=== PATIENT | female | born 1940 | race Caucasian/White ===

== ENCOUNTER → 2016-09-03 | Outpatient (CLI) | payer OTHER ==
[~2016-09-03] MED LIST: ALEN70TA4 PO; CALCTAB65 PO; CHOL100010 PO; LSN/10125 PO
[2016-09-03 10:59] LABS: BASO % 0.8 %; BASO ABS # 0.04 K/uL (0-0.2); COMPLETE YES; EOS % 1.6 %; HEMATOCRIT 40.8 % (37-47); LYMPH % 32.9 %; LYMPH ABS # 1.67 K/uL (1.2-3.4); MEAN CELL VOLUME 94.4 fL (80-100); MEAN CORPUSCULAR HEMOGLOBIN 31.7 pg (25-34); MEAN CORPUSCULAR HGB CONC 33.6 g/dl (32-36); MEAN PLATELET VOLUME 11.9 fL (7.4-10.4); MONO % 10.1 %; NEUT % 54.6 %; PLATELET COUNT 241 K/uL (130-400); RED BLOOD COUNT 4.32 M/uL (4.2-5.4); WHITE BLOOD COUNT 5.07 K/uL (4.8-10.8)
[2016-09-03 11:20] LABS: BLOOD UREA NITROGEN 17 mg/dl (7-18); BUN/CREATININE RATIO 18.6 (10-20); CARBON DIOXIDE 25 mmol/L (21-32); CHLORIDE 105 mmol/L (98-107); CHOLESTEROL 209 mg/dl (0-200); GLUCOSE 121 mg/dl (70-99); POTASSIUM 3.6 mmol/L (3.5-5.1); SODIUM 139 mmol/L (136-145); TRIGLYCERIDES 93 mg/dl (0-150); VERY LOW DENSITY LIPOPROT CALC 19 mg/dl
[2016-09-03 11:24] LABS: CALCIUM 9.4 mg/dl (8.5-10.1)
[2016-09-03 11:26] LABS: CHOLESTEROL/HDL RATIO 2.5; HDL CHOLESTEROL 82 mg/dl; LDL CHOLESTEROL CALCULATED 108 mg/dl
== END | disposition home or self-care (01) ==
LOC: C.LABBC 08:16
PROVIDERS: ATTEND Internal Medicine Geriatric Medicine
DX: I10 Essential (primary) hypertension (principal); M19.90 Unspecified osteoarthritis, unspecified site; E55.9 Vitamin D deficiency, unspecified; E78.5 Hyperlipidemia, unspecified

== ENCOUNTER → 2016-10-15 | Outpatient (CLI) | payer OTHER ==
--- NOTE | 2016-10-15 09:52 | DIAGNOSTIC IMAGING REPORT ---
LEFT KNEE 1 OR 2 VIEWS ROUTINE CLINICAL HISTORY: Left knee pain. No recent trauma. COMPARISON: None FINDINGS: There is a small left knee joint effusion. There is moderate lateral and patellofemoral component joint space narrowing with osteophytosis. There is no acute fracture. IMPRESSION: 1. No acute fracture. 2. Moderate osteoarthritis of the patellofemoral and lateral compartments of the left knee. 3. Small left knee joint effusion. Electronically signed by: Juan Pablo Benítez M.D. 10/15/2016 9:51 AM Dictated Date/Time: 10/15/2016 9:50 AM
--- NOTE | 2016-10-15 10:05 | DIAGNOSTIC IMAGING REPORT ---
LEFT ANKLE MIN 3 VIEWS ROUTINE CLINICAL HISTORY: Left ankle pain. COMPARISON: None FINDINGS: Alignment of left ankle is anatomic. There is no fracture or suspicious lesion. Talar dome is intact. There is minimal plantar calcaneal spurring. There is mild arthritis with the left midfoot. IMPRESSION: No significant abnormality of the left ankle. Electronically signed by: Juan Pablo Benítez M.D. 10/15/2016 10:03 AM Dictated Date/Time: 10/15/2016 10:03 AM
--- NOTE | 2016-10-15 10:10 | DIAGNOSTIC IMAGING REPORT ---
Venous Doppler left leg LEFT VENOUS DOPP LOWER EXT UNILAT CLINICAL HISTORY: Left leg pain pain. Edema. TECHNIQUE: Venous Doppler COMPARISON STUDY: None FINDINGS: Normal study IMPRESSION: Normal study Electronically signed by: Mark Rapp M.D. 10/15/2016 10:09 AM Dictated Date/Time: 10/15/2016 10:08 AM
== END | disposition home or self-care (01) ==
LOC: C.ULTRBC 09:19
PROVIDERS: ATTEND Physician Assistant
DX: M79.605 Pain in left leg (principal); M25.572 Pain in left ankle and joints of left foot; M25.569 Pain in unspecified knee; M17.12 Unilateral primary osteoarthritis, left knee; M25.462 Effusion, left knee

== ENCOUNTER → 2017-05-11 | Outpatient (CLI) | payer OTHER ==
[~2017-05-11] MED LIST changes: +ACET-1256 PO; +ACET-24 PO; +ASPI-320 PO; +CHOL2000 PO; +FRRG PO; +IBUP-103 PO; +ULT50X PO
[2017-05-11 13:49] LABS: HEMOGLOBIN A1C 5.3 % (4.5-5.6)
[2017-05-11 14:53] LABS: BLOOD UREA NITROGEN 19 mg/dl (7-18); CALCIUM 9.3 mg/dl (8.5-10.1); CARBON DIOXIDE 27 mmol/L (21-32); GLUCOSE 89 mg/dl (70-99); POTASSIUM 4.1 mmol/L (3.5-5.1); SODIUM 136 mmol/L (136-145)
[2017-05-11 15:01] LABS: CHOLESTEROL 220 mg/dl (0-200); LDL CHOLESTEROL CALCULATED 108 mg/dl
== END | disposition home or self-care (01) ==
LOC: C.LABBC 09:52
PROVIDERS: ATTEND Internal Medicine Geriatric Medicine
DX: I10 Essential (primary) hypertension (principal); R73.9 Hyperglycemia, unspecified; E78.5 Hyperlipidemia, unspecified

== ENCOUNTER → 2017-05-25 | Outpatient (CLI) | payer OTHER ==
[~2017-05-25] MED LIST changes: -ACET-1256 PO; -ACET-24 PO; -ASPI-320 PO; -CHOL2000 PO; -FRRG PO; -IBUP-103 PO; -ULT50X PO
--- NOTE | 2017-05-25 15:10 | MAMMOGRAPHY REPORT ---
BILATERAL DIGITAL SCREENING MAMMOGRAM TOMOSYNTHESIS WITH CAD: 05/25/2017 CLINICAL HISTORY: Routine screening. Patient has no complaints. TECHNIQUE: Breast tomosynthesis in addition to standard 2D mammography was performed. Current study was also evaluated with a Computer Aided Detection (CAD) system. COMPARISON: Comparison is made to exams dated: 04/06/2016 mammogram, 04/01/2015 mammogram, 02/06/2014 mammogram, 10/26/2012 mammogram, 10/25/2011 mammogram, and 10/22/2010 mammogram - [facility]. BREAST COMPOSITION: There are scattered areas of fibroglandular density in both breasts. FINDINGS: No suspicious masses, calcifications, or areas of architectural distortion are noted in ei ther breast. There has been no significant interval change compared to prior exams. Small bilateral circumscribed benign-appearing masses are again noted bilaterally; the dominant mass measures 11 mm i n the right upper outer breast, which is stable dating back to at least the 2007 exam. A biopsy cindy er clip is again noted within the right upper outer quadrant. Bilateral benign-appearing calcificati ons are not significantly changed. IMPRESSION: ACR BI-RADS CATEGORY 2: BENIGN There is no mammographic evidence of malignancy. A 1 year screening mammogram is recommended. The pa tient will receive written notification of the results. Approximately 10% of breast cancers are not detected with mammography. A negative mammographic report should not delay biopsy if a clinically suggestive mass is present. Corin Bullard M.D. /:05/25/2017 08:49:19 Insurance Licensing Supervisor: Laya JOHNSON(Luna)(M), [facility] letter sent: Normal 1/2 BI-RADS Code: ACR BI-RADS Category 2: Benign
== END | disposition home or self-care (01) ==
LOC: C.MAMM 08:31
PROVIDERS: ATTEND Internal Medicine Geriatric Medicine
DX: Z12.31 Encounter for screening mammogram for malignant neoplasm of breast (principal)

== ENCOUNTER 2017-08-16 08:58 | Inpatient (IN) | payer OTHER ==
[2017-07-18 08:35] VITALS: BMI 32.0
--- NOTE | 2017-07-18 09:03 | PAT Medication Instructions ---
Service Date Jul 18, 2017. Current Home Medication List Acetaminophen (Tylenol), 500 MG PO PRN Alendronate Sodium (Fosamax), 70 MG PO WK Calcium Carbonate-Vitamin D (Calcium 500 + D), 1 TAB PO QAM Cholecalciferol (Vitamin D3), 1 CAP PO QAM Hctz/Lisinopril (Lisinopril/Hctz 10/12.5 Mg), 1 TAB PO QAM Ibuprofen Tab (Advil), 200 MG PO PRN Medication Instructions For Your Scheduled Surgery -Continue as directed: Alendronate Sodium (Fosamax), 70 MG PO WK -Contact your surgeon for instructions for: Ibuprofen Tab (Advil), 200 MG PO PRN - Hold the following medications the morning of surgery: Calcium Carbonate-Vitamin D (Calcium 500 + D), 1 TAB PO QAM Cholecalciferol (Vitamin D3), 1 CAP PO QAM Hctz/Lisinopril (Lisinopril/Hctz 10/12.5 Mg), 1 TAB PO QAM - Take the following medications the morning of surgery with a sip of water: Acetaminophen (Tylenol), 500 MG PO PRN (if needed, can be taken up to four hours before surgery) - Take the following medications as scheduled the night before surgery: Acetaminophen (Tylenol), 500 MG PO PRN (if needed) If you have any questions please call us at [phone] or [phone] or [phone]
--- NOTE | 2017-07-18 09:41 | DIAGNOSTIC IMAGING REPORT ---
TWO VIEW CHEST CLINICAL HISTORY: Preoperative examination. FINDINGS: PA and lateral chest radiographs are obtained. No prior studies are available for comparison at the time of dictation. The heart is top normal for projection. There is atherosclerotic calcification of the thoracic aorta. There is mild elevation of right hemidiaphragm. The lungs and pleural spaces are clear. There is no pneumothorax. The skeletal structures are osteopenic. The bony thorax appears intact. IMPRESSION: No active disease in the chest. Electronically signed by: Van Clark M.D. 07/18/2017 9:39 AM Dictated Date/Time: 07/18/2017 9:39 AM
[2017-07-18 10:14] LABS: BASO % 0.5 %; BASO ABS # 0.02 K/uL (0-0.2); EOS % 1.8 %; EOS ABS # 0.08 K/uL (0-0.5); HEMATOCRIT 40.4 % (37-47); HEMOGLOBIN 13.8 g/dL (12.0-16.0); LYMPH % 30.3 %; LYMPH ABS # 1.34 K/uL (1.2-3.4); MEAN CELL VOLUME 93.1 fL (80-100); MEAN CORPUSCULAR HEMOGLOBIN 31.8 pg (25-34); MEAN CORPUSCULAR HGB CONC 34.2 g/dl (32-36); MEAN PLATELET VOLUME 11.3 fL (7.4-10.4); MONO % 13.3 %; MONO ABS # 0.59 K/uL (0.11-0.59); NEUT % 54.1 %; NEUT ABS # 2.39 K/uL (1.4-6.5); PLATELET COUNT 229 K/uL (130-400); RED CELL DISTRIBUTION WIDTH CV 12.7 % (11.5-14.5); RED CELL DISTRIBUTION WIDTH SD 43.1 fL (36.4-46.3); WHITE BLOOD COUNT 4.42 K/uL (4.8-10.8)
[2017-07-18 10:33] LABS: PTT PATIENT 27.5 SECONDS (21.0-31.0)
[2017-07-18 10:59] LABS: CALCIUM 9.7 mg/dl (8.5-10.1); CREATININE 0.9 mg/dl (0.60-1.20); POTASSIUM 4.4 mmol/L (3.5-5.1)
--- NOTE | 2017-08-10 14:02 | HISTORY & PHYSICAL EXAMINATION ---
DATE OF ADMISSION: 08/16/2017 CHIEF COMPLAINT: Bilateral knee pain, discomfort and instability, left side greater than right. 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 She has got a long history of bilateral knee pain and discomfort, left side greater than right. It has gradually just gotten worse over time. She has been through extensive therapy without much help. Knees continue to give out on her, left side a bit worse than the right. She cannot walk any significant distance due to pain. She actually uses a chair lift to get up and down her steps at home. She now like to have her left knee fixed. Of note, she does live with her who is fairly ill and she helps take care of him, which has been more difficult over time. PAST MEDICAL HISTORY: 1. Mild obesity with a BMI of 33. 2. Hypertension. PAST SURGICAL HISTORY: Include hysterectomy. ALLERGIES: None. CURRENT MEDICATIONS: Include: 1. Vitamin D. 2. Fosamax. 3. Lisinopril. SOCIAL HISTORY: A 77-year-old white female. She is . Does not smoke. Three children. Rare alcohol intake. FAMILY HISTORY: Significant for cancer. REVIEW OF SYSTEMS: Negative for diabetes, neurologic problems, vascular problems, bleeding disorders. Denies any chest pain or shortness of breath. No history of DVT or PE. PHYSICAL EXAMINATION: GENERAL: Reveals a pleasant elderly female. Looks to be in pretty good health. HEENT: Benign. NECK: Supple. No lymphadenopathy. LUNGS: Clear to auscultation. HEART: Regular rate and rhythm. ABDOMEN: Soft, nontender, nondistended. EXTREMITIES: Grossly neurovascularly intact except as follows: Examination of both knees reveals patient walks independently. She has got valgus alignment to both knees. This valgus alignment has made worse with weightbearing. Left knee is a bit more severe than the right. Range of motion of the left is 5-125 and the right is 5-130. No instability on either side. IMAGING DATA: X-rays of both knees reviewed. It shows advanced bilateral knee DJD. She has got complete loss of her lateral joint space on both sides, left side is a bit worse than the right. She has got diffuse osteopenia. ASSESSMENT: A 77-year-old white female with advanced bilateral knee degenerative joint disease, left side more symptomatic than right. She has got significant pain as well as instability. She has failed conservative treatment and would like to have her left knee replaced. PLAN: We will take her to the operating room and do a left total knee replacement. The risks and benefits of this procedure were explained to the patient including but not limited to DVT, PE, , infection, neurological injury, vascular injury, bleeding problem, pain, limited range of motion, stiffness, failure to relieve symptoms, incomplete relief of symptoms, need for further surgery in the future, fracture, leg length inequality, nerve palsy, need for blood transfusion, etc. The patient understands and desires to proceed. Informed consent was obtained. As far as discharge plans, she is hoping to go to [facility] for a brief rehab stay. Her is not very healthy and not able to assist in her care very well.
[2017-08-14 14:41] VITALS: BP 118/66; PULSE 76; TEMP 36.3; O2SAT 100
[2017-08-16] VITALS (7 sets, daily range): BP systolic 100–128; BP diastolic 58–81; PULSE 76–89; TEMP 36.2–36.6; O2SAT 94–100; Ht 165.1 cm; Wt 87.7 kg
[~2017-08-16] VITALS: Ht 165.1 cm; Wt 87.7 kg
[~2017-08-16 08:58] MED LIST changes: +ACET-1256 PO; +ACETAMINOPHEN 500 MG TAB PO SCH; +BUPIVACAINE 0.5 % 5 MG/1 ML PF 10ML VIAL ONE; +BUPIVACAINE LIPOSOME 266 MG, BUPIVACAINE/EPINEPHRINE INJ 50 ML, SODIUM CHLORIDE 0.9% PF... INFIL SCH; +CEFAZOLIN 2000MG IV PUSH 15 ML IV SCH; -CHOL100010 PO; +CHOL2000 PO; +FAMOTIDINE 20 MG TAB PO SCH; +FENTANYL CITRATE INJ 50 MCG/1 ML 2 ML VIAL ONE; +GABAPENTIN 300 MG CAP PO SCH; +IBUP-103 PO; +LACTATED RINGER'S 1000ML 1,000 ML IV SCH; +LACTATED RINGER'S 1000ML 500 ML IV SCH; +LACTATED RINGER'S 1000ML IV SCH; +METOCLOPRAMIDE HCL 10 MG TAB PO SCH; +MIDAZOLAM HCL 1 MG/ML 2ML VIAL ONE; +ROPIVACAINE 0.5% 5 MG/ML 30 ML VIAL ONE; +TRANEXAMIC ACID INJ 1,000 MG x 1 Bag Intra-Op IV SCH
--- NOTE | 2017-08-16 09:12 | History & Physical Bridge Note ---
H&P Re-Evaluation Bridge Note: I have examined the patient, reviewed the History & Physical and in the interval since the performance of the History & Physical I have noted the following changes of clinical significance: No changes noted
[2017-08-16] MEDS ORDERED: PHENYLEPHRINE 100MCG/ML 5ML SYR IV PRN (09:45)
[2017-08-16] MEDS ORDERED: EpHEDrine SULFATE INJ 50 MG/ML AMP IV PRN (09:45)
[2017-08-16] MEDS ORDERED: ONDANSETRON INJ 2 MG/ML 2 ML VIAL IV PRN ×2 (09:45→13:00)
[2017-08-16] MEDS ORDERED: HYDROmorphone INJ 2 MG/ML SYR/VIAL IV PRN (09:45)
[2017-08-16] MEDS ORDERED: ATROPINE SULFATE 0.1 MG/ML 5ML SYR IV PRN (09:45)
[2017-08-16] MEDS ORDERED: ONDANSETRON INJ 2 MG/ML 2 ML VIAL ONE (10:28)
[2017-08-16] MEDS ORDERED: LIDOCAINE HCL 2% 2 ML VIAL (20MG/ML) ONE (10:28)
[2017-08-16] MEDS ORDERED: PROPOFOL IV EMULSION 10 MG/ML 20 ML VIAL IV ONE (10:28)
[2017-08-16] MEDS ORDERED: SODIUM CHLORIDE 0.9% PF 50 ML VIAL ONE (10:52)
[2017-08-16] MEDS ORDERED: BACITRACIN 50000 UNIT VIAL ONE (10:52)
[2017-08-16] MEDS ORDERED: BUPIVACAINE LIPOSOME 1/3% 266 MG/20 ML VIAL INFIL ONE (10:52)
[2017-08-16] MEDS ORDERED: BUPIVACAINE 0.25% 30 ML VIAL ONE (10:53)
[2017-08-16] MEDS ORDERED: EpINEphrine INJ 1MG/ML AMP 1 MG/ML AMP ONE (10:53)
[2017-08-16] MEDS ORDERED: EpHEDrine SULFATE 50MG/5ML SYR ONE (11:29)
--- NOTE | 2017-08-16 12:52 | [facility] Post Operative Brief Note ---
Immediate Operative Summary Operative Date Aug 16, 2017. Pre-Operative Diagnosis Left Knee Dengenerative Joint Disease Post-Operative Diagnosis Left Knee Dengenerative Joint Disease Procedure(s) Performed Left Total Knee Arthroplasty Surgeon Dr. Yoav Reddy Corporate Paralegal Surgeon(s) Keagan Ray PA-C Estimated Blood Loss 50 ml Findings Consistent with Post-Op Diagnosis Fluids (cc crystalloids) 1300 cc Specimens Permanent Specimen: A.) Left Knee Bone and Tissue Drains None Anesthesia Type MAC Spinal Regional Complication(s) none Disposition Accompanied Pt To Recover: no Disposition: Recovery Room / PACU
[2017-08-16] MEDS ORDERED: METOCLOPRAMIDE HCL INJ 5 MG/ML 2 ML VIAL IV PRN (13:00)
[2017-08-16] MEDS ORDERED: BISACODYL 10 MG SUPP PR PRN (13:00)
[2017-08-16] MEDS ORDERED: SILVER SULFADIAZINE 1% CR 50 GM JAR EXT PRN (13:00)
[2017-08-16] MEDS ORDERED: ZOLPIDEM TARTRATE 5 MG TAB PO PRN (13:00)
[2017-08-16] MEDS ORDERED: CEFAZOLIN IV 2,000 MG in DEXTROSE 5% 50ML 50 ML IV SCH (13:00)
[2017-08-16] MEDS ORDERED: ALUMINUM/MAGNESIUM/SIMETH (MAALOX MAX) 30 ML UDC PO PRN (13:00)
[2017-08-16] MEDS ORDERED: HYDROmorphone INJ 0.5 MG/0.5 ML SYR IV PRN (13:00)
[2017-08-16] MEDS ORDERED: MAGNESIUM HYDROXIDE SUSP 30 ML UDC PO PRN (13:00)
--- NOTE | 2017-08-16 13:35 | OPERATIVE REPORT ---
DATE OF OPERATION: 08/16/2017 SURGEON: Yoav Reddy MD MECHANICAL SERVICE REPRESENTATIVE: LORIN Raymundo PREOPERATIVE DIAGNOSIS: Left knee degenerative joint disease. POSTOPERATIVE DIAGNOSIS: Same. PROCEDURE PERFORMED: Left cemented posterior stabilized total knee arthroplasty. COMPLICATIONS: None. ESTIMATED BLOOD LOSS: 50 mL. FLUID REPLACEMENT: 1300 mL crystalloid fluid replacement. ANESTHESIA: Spinal with adductor canal block. DRAINS: None. SPECIMENS: Left knee sent for pathology. TOURNIQUET TIME: 60 minutes at 300 mmHg. OPERATIVE INDICATIONS: The patient is a 77-year-old female who has had a several year history of increasing bilateral knee pain and discomfort, left side greater than right. She has been through extensive conservative treatment without adequate relief. Over time she has become more disabled due to her knee pain particularly the left side with a marked instability and giving way as well. X-rays reveal advanced lateral compartment DJD. The patient elects to proceed with operative treatment. OPERATIVE FINDINGS: Operative findings revealed advanced left knee DJD. She did have pretty extensive grade 4 changes in all 3 compartments, most severe in the lateral side. She had a valgus deformity to her knee. Moderate size joint effusion. Diffuse osteopenia. OPERATIVE IMPLANTS: Operative implants consisted of: 1. Biomet Vanguard size 65 left posterior bifemoral component. 2. Biomet size 71 tibial tray. 3. A 10 mm posterior stabilized polyethylene insert. 4. A 28 x 8 all poly patella. OPERATIVE PROCEDURE: The patient taken to the operating room, identified, and placed on the operating table in supine position. All contact areas were appropriately padded. IV antibiotics were provided by anesthesia team. A spinal anesthetic and adductor canal block had been provided in the holding area. Mckenzie catheter was placed in sterile fashion. Left thigh tourniquet was then placed and left lower extremity was then prepped and draped in usual sterile fashion. Left leg was elevated and exsanguinated with Esmarch; tourniquet placed at 300 mmHg. An anterior approach of the left knee was then performed through a longitudinal incision centered over the patella. Sharp dissection was carried through subcutaneous tissue down to the level of the extensor mechanism. A medial parapatellar arthrotomy incision was made. Subperiosteal dissection was carried out medially. The fat pad resected from beneath the patellar tendon. The lateral patellofemoral ligament was released and the patella was everted and knee was flexed. The osteophytes were taken off the distal femur. The ACL and PCL were then released from the distal femur and the tibia subluxated anteriorly. The external tibial alignment jig was then placed in the anterior face of the tibia and adjusted 12 mm medially. Proximal tibial cut was made to remove about 3 mm of bone from the most medial side. The tibia was then sized to a size 71. Attention was then drawn to the femur. The distal femur was drilled with a sharp drill bit. Intramedullary canal was suctioned. A left 5 degree valgus cutting guide was placed. Distal femoral cutting block was pinned in place. Distal femoral cut was made to take an additional 5 mm of bone off the distal femur as the initial cut did not take much and she did have a flexion contracture. The femur was then sized. Before doing this, I did bring the knee out in extension and did just a little bit of pie crusting of the IT band to equalize the extension gap. The femur was then sized. I downsized this to almost the entire one size due to the narrow medial lateral dimensions of the femur down to a 65. The AP cutting block was pinned parallel to the epicondylar axis, which was 6 degrees of external rotation. The anterior cut, anterior chamfer, posterior cut, posterior chamfer cuts were made. Box cutting guide was placed and adjusted slightly lateral and the box cut was made. The knee was flexed. The remnants of medial lateral menisci were excised. The osteophytes were taken off the posterior aspect of the femur. I did release the popliteus tendon in order to equalize the flexion gap. A trial femoral component was placed. The tibial tray was pinned in maximum external rotation and drill and stem punch were used to create defect in proximal tibia for the tibial tray. The knee was then trialed and 10 mm insert fit most appropriately. Attention was then drawn to the patella. The patella was cleaned of all soft tissues. Patella thickness measured 21 mm, cut down to 13. It was sized to a size 28 patella. Lug holes were drilled for a 28 patella. The lateral osteophyte was removed. Patella button was placed. Knee was taken through range of motion and patella tracked nicely with no thumbs test. Attention was then drawn toward placement of the permanent components. All trial components were removed. Bone plug was placed in the distal femur to limit blood loss. A double batch of Palacos G cement was mixed. A left size 65 posterior stabilized femoral component, size 71 tibial tray, 10 mm posterior stabilized polyethylene insert, 28 x 8 all poly patella then cemented in place. Knee was brought out into full extension until cement hardened. A final cement check was then performed. The pericapsular tissues were injected with a total of 100 mL of a combination of 20 mL of Exparel, 30 mL of normal saline, 50 mL of 0.25% Marcaine with epinephrine. The patient did receive 1 g of tranexamic acid. The tourniquet was then let down for a final tourniquet time of 60 minutes. Hemostasis was assured using electrocautery. The wound was once again irrigated. The extensor mechanism was then closed with a combination of #1 PDS suture and #1 Vicryl suture in a [id number] fashion. The extensor mechanism was checked and found to be intact. The subcutaneous tissues were then closed with #2 Dexon suture in a buried interrupted fashion. Skin was closed with skin dangelo. Leg was then cleaned and dried and a sterile dressing of Xeroform, 4 x 4, sterile cast padding and Jarocho bandage were applied. The patient then transferred to the recovery room in stable condition. The patient tolerated the procedure with no complication. All needle, sponge counts were correct at the end of the operation. I attest to the content of the Intraoperative Record and any orders documented therein. Any exception s are noted below.
--- NOTE | 2017-08-16 13:40 | DIAGNOSTIC IMAGING REPORT ---
L KNEE 1 OR 2 VIEWS ROUTINE CLINICAL HISTORY: 77 years-old Female presenting with AP/LATERAL IN PACU LEFT KNEE. TECHNIQUE: Frontal and lateral views of the left knee were obtained. COMPARISON: 10/15/2016. FINDINGS: Postsurgical changes of total left knee arthroplasty with patellar resurfacing. Expected intra-articular and soft tissue emphysema. Overlying skin dangelo noted. No malalignment. No periprosthetic fracture. No hardware complication. IMPRESSION: Expected postsurgical appearance status post total left knee arthroplasty with patellar resurfacing. Electronically signed by: Charlie Walter M.D. 08/16/2017 1:39 PM Dictated Date/Time: 08/16/2017 1:38 PM
--- NOTE | 2017-08-16 14:21 | Anesthesiology Progress Note ---
Anesthesia Post Op Note Date & Time Aug 16, 2017 at 14:21 Vital Signs Pain Intensity: 0 Vital Signs Past 12 Hours Date Time Temp Pulse Resp B/P (MAP) Pulse Ox O2 Delivery O2 Flow Rate FiO2 08/16/17 13:40 83 22 111/57 99 Nasal Cannula 2 08/16/17 13:25 36.7 80 17 119/56 100 Nasal Cannula 2 08/16/17 13:15 79 15 106/59 100 Nasal Cannula 2 08/16/17 13:05 79 21 115/54 100 Oxymask 10 08/16/17 12:57 36.7 90 16 110/50 100 Oxymask 10 08/16/17 09:30 36.6 89 20 128/81 98 Room Air Notes Mental Status: alert / awake / arousable, participated in evaluation Pt Amnestic to Procedure: Yes Nausea / Vomiting: adequately controlled Pain: adequately controlled Airway Patency, RR, SpO2: stable & adequate BP & HR: stable & adequate Hydration State: stable & adequate Anesthetic Complications: no major complications apparent
[2017-08-16] MEDS: D5W AND 1/2NSS + 20MEQ KCL 1,000 ML IV SCH (14:46)
[2017-08-16] MEDS: KETOROLAC TROMETHAMINE 15 MG/ML VIAL IV. SCH ×2 (15:50→21:04)
--- NOTE | 2017-08-16 17:52 | PROGRESS NOTE ---
DATE: 08/16/2017 SUBJECTIVE: A 77-year-old white female postop from a left knee replacement. She is doing well. Not having any pain yet. No chest pain or shortness of breath. Not feeling dizzy or lightheaded. OBJECTIVE: VITAL SIGNS: Temperature 36.2. Vital signs stable. PHYSICAL EXAMINATION: GENERAL: Reveals a pleasant elderly female. She is sitting up in bed and talking to her family. She looks comfortable. LUNGS: Clear to auscultation. HEART: Regular rate and rhythm. ABDOMEN: Soft, nontender, nondistended. EXTREMITIES: Grossly neurovascularly intact except as follows: Examination of left lower extremity reveals the leg to be well aligned. She can dorsiflex and plantarflex her foot appropriately. She is neurologically intact. X-RAYS: X-ray of left knee from recovery room were reviewed. Shows a cemented posterior stabilized total knee arthroplasty. The components looked to be in good position. No signs of problems. ASSESSMENT: A 77-year-old white female postop from left knee replacement, doing well. Pain is controlled. She is neurologically intact. PLAN: 1. DVT prophylaxis including thigh-high TEDs, SCDs, and aspirin twice a day. 2. PT/OT. Weight bear as tolerated. Left total knee protocol. 3. Pain control, doing well with current pain regimen. 4. IV antibiotics x24 hours. 5. Disposition: Plan to discharge to [facility]. She is hoping to go to [facility] for a brief rehab stay once medically stable.
[2017-08-16] MEDS: FERROUS GLUCONATE 324 MG TAB PO SCH (18:03)
[2017-08-16] MEDS: ACETAMINOPHEN 500 MG TAB PO SCH (18:04)
[2017-08-16] MEDS ORDERED: TRANEXAMIC ACID INJ 1,000 MG in SODIUM CHLORIDE 0.9% 100ML 100 ML IV SCH (19:00)
[2017-08-16] MEDS: CEFAZOLIN IV 2,000 MG in SYRINGE 0 ML IV SCH (19:12)
[2017-08-16] MEDS: DOCUSATE SODIUM 100 MG CAP PO SCH (21:01)
[2017-08-16] MEDS: ASPIRIN 81 MG ECTAB PO SCH (21:02)
[2017-08-16] MEDS: SENNA 8.6 MG TAB PO SCH (21:02)
[2017-08-16] MEDS ORDERED: NURSING VERBAL MED ORDER ONE (22:15)
[2017-08-16] MEDS ORDERED: SODIUM CHLORIDE 0.9% 500ML 500 ML IV SCH (22:30)
[2017-08-17] MEDS: TRAMADOL HCL 50 MG TAB PO PRN ×3 (00:15→13:13)
[2017-08-17] MEDS: D5W AND 1/2NSS + 20MEQ KCL 1,000 ML IV SCH ×2 (02:05→10:30)
[2017-08-17] MEDS: CEFAZOLIN IV 2,000 MG in SYRINGE 0 ML IV SCH (03:20)
[2017-08-17] MEDS: KETOROLAC TROMETHAMINE 15 MG/ML VIAL IV. SCH ×4 (03:27→21:30)
[2017-08-17 03:28] VITALS: BP 105/62; PULSE 78; TEMP 36.4; O2SAT 96
[2017-08-17] MEDS: ACETAMINOPHEN 500 MG TAB PO SCH ×3 (05:25→21:25)
[2017-08-17 06:46] LABS: HEMOGLOBIN 10.2 g/dL (12.0-16.0); MEAN CELL VOLUME 93.7 fL (80-100); MEAN CORPUSCULAR HEMOGLOBIN 30.8 pg (25-34); MEAN CORPUSCULAR HGB CONC 32.9 g/dl (32-36); MEAN PLATELET VOLUME 10.9 fL (7.4-10.4); PLATELET COUNT 155 K/uL (130-400); RED CELL DISTRIBUTION WIDTH CV 12.8 % (11.5-14.5); RED CELL DISTRIBUTION WIDTH SD 44.3 fL (36.4-46.3); WHITE BLOOD COUNT 4.25 K/uL (4.8-10.8)
[2017-08-17 07:23] LABS: CREATININE 0.77 mg/dl (0.60-1.20); POTASSIUM 3.9 mmol/L (3.5-5.1)
[2017-08-17 07:40] VITALS: BP 123/70; PULSE 85; O2SAT 95
[2017-08-17] MEDS ORDERED: ACET-24 PO (07:59)
[2017-08-17] MEDS ORDERED: FRRG PO (07:59)
[2017-08-17] MEDS ORDERED: ASPI-320 PO (07:59)
[2017-08-17] MEDS ORDERED: ULT50X PO (07:59)
[2017-08-17] MEDS: PANTOprazole SOD 40 MG TAB PO SCH (09:01)
[2017-08-17] MEDS: CHOLECALCIFEROL 1000 INTER.UNIT TAB PO SCH (09:01)
[2017-08-17] MEDS: ASPIRIN 81 MG ECTAB PO SCH ×2 (09:02→21:24)
[2017-08-17] MEDS: DOCUSATE SODIUM 100 MG CAP PO SCH ×2 (09:02→21:24)
[2017-08-17] MEDS: FERROUS GLUCONATE 324 MG TAB PO SCH ×3 (09:02→17:54)
[2017-08-17] MEDS: MULTIVITAMIN TAB PO SCH (09:02)
[2017-08-17] MEDS: CALCIUM 600MG + VIT D 400 IU TAB PO SCH (09:03)
[2017-08-17 09:04] VITALS: BP 109/60; PULSE 79
[2017-08-17] MEDS: LISINOPRIL/HCTZ 10/12.5MG TAB PO SCH (09:04)
--- NOTE | 2017-08-17 10:55 | Anesthesiology Progress Note ---
Anesthesia Post Op Note Date & Time Aug 17, 2017 at 10:54 Vital Signs Vital Signs Past 12 Hours Date Time Temp Pulse Resp B/P (MAP) Pulse Ox O2 Delivery O2 Flow Rate FiO2 08/17/17 09:04 79 109/60 (76) 08/17/17 07:40 85 19 123/70 (87) 95 Room Air 08/17/17 07:30 Room Air 08/17/17 03:28 36.4 78 16 105/62 (76) 96 Room Air 08/17/17 00:05 Room Air 08/16/17 23:08 36.4 76 16 100/58 (72) 94 Room Air Notes Mental Status: alert / awake / arousable, participated in evaluation Pt Amnestic to Procedure: Yes Nausea / Vomiting: adequately controlled Pain: adequately controlled Airway Patency, RR, SpO2: stable & adequate BP & HR: stable & adequate Hydration State: stable & adequate Neuraxial Anesthesia: sensory block resolved Anesthetic Complications: no major complications apparent
[2017-08-17 11:13] VITALS: BP 116/70; PULSE 73; TEMP 36.3; O2SAT 97
[2017-08-17 15:09] VITALS: BP 101/57; PULSE 76; TEMP 36.3; O2SAT 96
--- NOTE | 2017-08-17 18:33 | PROGRESS NOTE ---
DATE: 08/17/2017 SUBJECTIVE: A 77-year-old white female postop day 1 from left knee replacement. She is doing pretty well. Some pain but manageable. No chest pain or shortness of breath. Not feeling dizzy or lightheaded. OBJECTIVE: VITAL SIGNS: Temperature 36.3. Vital signs stable. GENERAL: A healthy, pleasant, elderly female. She is sitting up in her bed and eating dinner. She looks comfortable. EXTREMITIES: Examination of left knee reveals the dressing to be clean, dry, and intact. She can dorsiflex and plantarflex her foot appropriately. She is neurologically intact. LABORATORY DATA: Hemoglobin 10.2. Hematocrit 31.0. Electrolytes are stable. ASSESSMENT: A 77-year-old white female postop day 1 from left knee replacement, doing pretty well. Pain is controlled. She is neurologically intact. She is anemic, but asymptomatic. PLAN: 1. DVT prophylaxis include thigh high TEDs, SCDs, and aspirin twice a day. 2. PT, OT. Weightbear as tolerated. Left total knee protocol. 3. Pain control, doing well with current pain regimen. 4. Anemia. She is asymptomatic. Will continue iron supplementation. 5. Disposition: Plan to discharge to [facility] once medically stable and bed available.
--- NOTE | 2017-08-17 19:47 | Discharge Instructions ---
Discharge Instructions Date of Service Aug 17, 2017. Admission Reason for Admission: Left Knee Degenerative Joint Disease Discharge Discharge Diagnosis / Problem: Left Knee Replacement Discharge Goals Goal(s): Decrease discomfort, Improve function, Increase independence, Improve disease control, Therapeutic intervention Activity Recommendations Activity Level: Assistance Required Therapies: Physical Therapy, Occupational Therapy Weightbearing Status: Left weightbearing . Additional Information Patient informed of condition: Yes Advance Directives: No DNR: No Level of Care: Acute Rehab Communicable Disease: No Prognosis: Improving Instructions / Follow-Up Instructions / Follow-Up ACTIVITY RECOMMENDATIONS: Physical Therapy: * You will go to physical therapy three times each week for four to six weeks after your surgery in order to regain your knee range of motion and to retrain your knee to work properly. * It is just as important to make sure you are getting your knee perfectly straight as it is to regain your knee bend. * Taking a pain pill an hour before therapy can help you have a more productive and comfortable therapy session. Home Exercise: * You were shown a series of exercises (heel props, heel slides, etc.) in the hospital. Do these exercises three to four times each day including the exercises you were shown in physical therapy. Walking: * Get up and walk several times each day. For the first four weeks, try not to stand or walk for more than one hour at a time. If you do stand or walk for more than one hour, you will not hurt anything, but your knee and leg will likely swell. * As you feel comfortable, you may change from the walker or crutches to a cane and then to independent walking. MEDICATIONS: New Medicine: * You will likely be taking one or more of these medications: 1. Tramdol - A quick and shorter-acting pain medication. Take one to two tablets every four to six hours to lessen your pain. 2. Iron Sulfate - Take two times each day for the month after surgery to help you replace the blood lost during surgery. 3. Aspirin - Thins your blood to lessen the chance of forming a blood clot. * The most common side effects of pain medicine and iron are nausea and constipation. If nausea or constipation is too much of a problem or if you have any questions about your new medicines or doses, call [facility] at [phone]. We will try to help you manage these issues. VERY IMPORTANT TO READ AND REVIEW" Pain: * The immediate post-operative period after knee replacement surgery is often quite painful. * You are given a prescription for pain medicine. You should take it, as directed, when you need it, especially before physical therapy and before going to bed. Pain that interferes with sleep is very common and can last several months. * You will likely need pain medicine for the first four to six weeks. It will not stop all of the pain. The pain will lessen and as you feel better, you may change to milder pain medicine such as Tylenol. * The most common side effects of pain medicine are nausea and constipation, so don't take more than you need. SPECIAL CARE INSTRUCTIONS: TEDs/Elastic Stockings: * The white elastic stockings help limit swelling and prevent blood clots from forming in your legs. The more you wear them, the more they work. * Wear them for six weeks after knee replacement surgery and four weeks after partial knee replacement. Prevention of Infection: * Take antibiotics one hour before any dental cleaning, dental work, urological procedure, gastrointestinal procedure or any invasive surgery in order to prevent your new joint from getting infected. * You may get the antibiotics from the doctor performing the procedure or you may call our office at before and we will call in a prescription to the pharmacy of your choice. Things to Watch For: * Drainage from the incision site that occurs more than one week after your surgery. * Severely increased knee/leg pain or swelling. * Increased redness at the incision site. * Fever above 102 degrees Fahrenheit. * Unusual chest pain or shortness of breath. * Unusual pain or burning with urination. Call [facility] at with any of the above problems or if you have any questions about your medicines or recovery. FOLLOW UP VISIT: Make an appointment to see your doctor for approximately two weeks after surgery for a progress check and staple removal by calling the office at . Current Hospital Diet Patient's current hospital diet: Regular Diet Discharge Diet Recommended Diet: Regular Diet Procedures Procedures Performed: Left Total Knee Arthroplasty Pending Studies Studies pending at discharge: no Medical Emergencies . Who to Call and When: Medical Emergencies: If at any time you feel your situation is an emergency, please call [phone] immediately. . Non-Emergent Contact Non-Emergency issues call your: Surgeon . . "Provider Documentation" section prepared by Yoav Reddy. . Core Measure Problem Core Measures: None
[2017-08-17] MEDS: SENNA 8.6 MG TAB PO SCH (21:24)
[2017-08-17 23:52] VITALS: BP 94/54; PULSE 70; TEMP 36.5; O2SAT 96
[2017-08-18] MEDS: TRAMADOL HCL 50 MG TAB PO PRN ×3 (00:49→20:25)
[2017-08-18] MEDS: KETOROLAC TROMETHAMINE 15 MG/ML VIAL IV. SCH ×2 (04:05→09:34)
[2017-08-18] MEDS: ACETAMINOPHEN 500 MG TAB PO SCH ×3 (05:50→22:14)
[2017-08-18 06:15] VITALS: BP 96/58; PULSE 73; TEMP 36.7; O2SAT 95
[2017-08-18] MEDS: CHOLECALCIFEROL 1000 INTER.UNIT TAB PO SCH (07:33)
[2017-08-18] MEDS: CALCIUM 600MG + VIT D 400 IU TAB PO SCH (07:33)
[2017-08-18] MEDS: MULTIVITAMIN TAB PO SCH (07:33)
[2017-08-18] MEDS: PANTOprazole SOD 40 MG TAB PO SCH (07:33)
[2017-08-18] MEDS: FERROUS GLUCONATE 324 MG TAB PO SCH ×3 (07:33→18:03)
[2017-08-18] MEDS: LISINOPRIL/HCTZ 10/12.5MG TAB PO SCH (07:34)
--- NOTE | 2017-08-18 07:45 | PROGRESS NOTE ---
DATE: 08/18/2017 SUBJECTIVE: A 77-year-old female postop day 2 from a left knee replacement. She is doing pretty well. Some moderate amount of pain. No chest pain or shortness of breath. Not feeling dizzy or lightheaded. OBJECTIVE: VITAL SIGNS: Temperature 36.7. Vital signs stable. GENERAL: Reveals a pleasant, middle-aged female. She is sitting up in her bedside eating her breakfast. EXTREMITIES: Examination of the left leg reveals the dressing to be clean, dry and intact. Cast is soft and supple. She is neurologically intact. ASSESSMENT: A 77-year-old white female postop day 2 from left knee replacement, doing pretty well. Pain is reasonably well controlled. PLAN: 1. DVT prophylaxis including thigh-high TEDs, SCDs, and aspirin twice. 2. PT/OT, but weight bear as tolerated. Left total knee replacement. 3. Pain control, doing pretty well with current pain regimen. 4. Disposition: Plan to discharge to [facility] once medically stable and accepted.
[2017-08-18] MEDS: DOCUSATE SODIUM 100 MG CAP PO SCH ×2 (09:29→20:25)
[2017-08-18] MEDS: ASPIRIN 81 MG ECTAB PO SCH ×2 (09:29→20:26)
[2017-08-18 15:06] VITALS: BP 100/64; PULSE 66; TEMP 36.4; O2SAT 98
[2017-08-18] MEDS: SENNA 8.6 MG TAB PO SCH (20:26)
[2017-08-18 22:49] VITALS: BP 112/68; PULSE 79; TEMP 36.6; O2SAT 95
[2017-08-19] MEDS: ACETAMINOPHEN 500 MG TAB PO SCH (05:20)
[2017-08-19 07:40] VITALS: BP 100/63; PULSE 79; TEMP 36.3; O2SAT 96
[2017-08-19] MEDS: FERROUS GLUCONATE 324 MG TAB PO SCH (08:43)
[2017-08-19] MEDS: DOCUSATE SODIUM 100 MG CAP PO SCH (08:43)
[2017-08-19] MEDS: ASPIRIN 81 MG ECTAB PO SCH (08:44)
[2017-08-19] MEDS: CHOLECALCIFEROL 1000 INTER.UNIT TAB PO SCH (08:44)
[2017-08-19] MEDS: MULTIVITAMIN TAB PO SCH (08:44)
[2017-08-19] MEDS: PANTOprazole SOD 40 MG TAB PO SCH (08:44)
[2017-08-19] MEDS: CALCIUM 600MG + VIT D 400 IU TAB PO SCH (08:44)
[2017-08-19 08:46] VITALS: BP 103/64; PULSE 80
[2017-08-19] MEDS: LISINOPRIL/HCTZ 10/12.5MG TAB PO SCH (08:46)
--- NOTE | 2017-08-19 09:01 | Orthopedic Progress Note ---
Orthopedic Progress Note Date of Service Aug 19, 2017. Subjective Additional Notes: 77 y/o female POD #3 from L TKA. Doing well. Sitting at bedside eating breakfast. No chest pain or sob. knee pain is controlled. No other complaints. She states she is ready to go to [facility]. Objective calves soft nontender, N/V intact, incision C/D/I, A&O x3, toes mobile Date Time Temp Pulse Resp B/P (MAP) Pulse Ox O2 Delivery O2 Flow Rate FiO2 08/19/17 08:46 80 103/64 (77) 08/19/17 07:50 Room Air 08/19/17 07:40 36.3 79 18 100/63 (75) 96 Room Air 08/18/17 23:10 Room Air 08/18/17 22:49 36.6 79 17 112/68 (83) 95 Room Air 08/18/17 15:10 Room Air 08/18/17 15:06 36.4 66 16 100/64 (76) 98 Room Air Assessment & Plan Assessment: POD #3 LEFT TKA Discharge Planning Discharge Planning: rehab hospital (DISCHARGE TO [facility] TODAY. ) Pain Management: other (CONTINUE CURRENT PAIN MANAGEMENT. ) DVT Prophylaxis: TEDs, SCDs, ASA Therapy: Physical Therapy, Occupational Therapy
[2017-08-19 10:26] VITALS: BP 103/64; PULSE 80; TEMP 36.3; O2SAT 96
[2017-08-19] MEDS: TRAMADOL HCL 50 MG TAB PO PRN (10:32)
== END 2017-08-19 11:24 | DRG 470 ==
LOC: C.ACU 08:58 → C.3E 09:50 → ENRESERV 13:27
PROVIDERS: ADMIT Orthopaedic Surgery Sports Medicine; ATTEND Orthopaedic Surgery Sports Medicine
PROC: 0SRD0J9 Replacement of Left Knee Joint with Synthetic Substitute, Cemented, Open Approach (ICD-10-PCS; principal; 2017-08-16 11:00)
DX: M17.12 Unilateral primary osteoarthritis, left knee (principal); I10 Essential (primary) hypertension; E66.9 Obesity, unspecified; Z79.899 Other long term (current) drug therapy; Z68.33 Body mass index [BMI] 33.0-33.9, adult

== ENCOUNTER 2020-09-12 05:15 | Observation (INO) ==
--- NOTE | 2020-08-21 14:31 | PAT Medication Instructions ---
Medication Instructions Date of Service August 21, 2020 Home Medications Medication Instructions Recorded alendronate 70 mg tablet 70 mg PO WEEKLY #12 tab 03/04/20 acetaminophen 500 mg capsule 500 mg PO Q6H PRN calcium carbonate 600 mg calcium (1,500 mg) tablet 600 mg PO QAM cholecalciferol (vitamin D3) 50 mcg (2,000 unit) capsule 2,000 units PO QAM alendronate 70 mg tablet 70 mg PO WEEKLY lisinopril-hydrochlorothiazide 1 tab PO QAM Continue as directed alendronate 70 mg tablet 70 mg PO WEEKLY DO NOT take the morning of surgery calcium carbonate 600 mg calcium (1,500 mg) tablet 600 mg PO QAM cholecalciferol (vitamin D3) 50 mcg (2,000 unit) capsule 2,000 units PO QAM lisinopril-hydrochlorothiazide 1 tab PO QAM Take morning of surgery With a small sip of water, OTHERWISE NOTHING TO EAT OR DRINK AFTER MIDNIGHT: acetaminophen 500 mg capsule 500 mg PO Q6H PRN (okay to take up to 4 hours prior to surgery if needed) Take evening before surgery acetaminophen 500 mg capsule 500 mg PO Q6H PRN (if needed) Other Notes If you have any questions please call us at [phone] or [phone] or [phone] or [phone]
--- NOTE | 2020-08-22 12:17 | Anesthesiology Consultation ---
Date of Service August 22, 2020 Assessment & Plan (1) Encounter for pre-operative examination: COVID Status: As of 08/22 assessment, patient denies travel to endemic area, known exposure/sick contacts, or symptoms of COVID19. Patient instructed that they and their household members must follow strict social distancing guidelines, wear a mask in public and avoid travel/events/gatherings for 14 days prior to surgery. Preoperative COVID19 testing to be completed prior to surgery per surgeon's arrangements. Patient made aware to self-isolate as much as possible between COVID testing and surgery. Pt has had COVID vaccine. Chart Review Chart Review: Acceptable Risk for Surgery and Patient seen in Pre Admission Testing Teaching & Discussion Instructed NPO after midnight before surgery, except medications with 15 cc of water. Medication instructions provided according to the PAT guidelines. History Surgery Operation Date: 09/12/20 09:05 Proposed Procedures p Right Total Knee Arthroplasty - Yoav Reddy MD Height/Weight Height: 5 ft 5.5 in Weight: 88.7 kg Allergies Allergy/AdvReac Type Severity Reaction Status Date / Time No Known Drug Allergies Allergy Unknown NONE Verified 08/14/20 08:32 Medications Home Medications Medication Instructions Recorded Confirmed Last Taken acetaminophen 500 mg capsule 500 mg PO Q6H PRN 01/03/19 08/14/20 Unknown calcium carbonate 600 mg calcium 600 mg PO QAM tab 01/03/19 08/14/20 Unknown (1,500 mg) tablet cholecalciferol (vitamin D3) 50 2,000 units PO QAM 01/03/19 08/14/20 Unknown mcg (2,000 unit) capsule alendronate 70 mg tablet 70 mg PO WEEKLY #12 tab 03/04/20 08/14/20 Unknown lisinopril-hydrochlorothiazide 1 tab PO QAM 08/14/20 08/14/20 Unknown Past Medical History Medical History (Updated 08/25/20 @ 11:03 by Ac Blackburn) Anxiety Chronic osteoarthritis Dyslipidemia HTN (hypertension) Hyperglycemia Osteoporosis Right knee DJD Serrated polyp of colon Vitamin D deficiency Exercise / Class Metabolic Activity II 4-5 Yardwork/Stairs/Walk up hill (DENIES CP OR SOB WITH 1 FOS) Past Family History Family History Father COPD (chronic obstructive pulmonary disease) Osteoarthritis Prostate cancer Mother Metastatic cancer unknown primary Denies family history of Ovarian cancer Breast cancer Lung cancer Colorectal cancer Past Surgical History Surgical History H/O colonoscopy H/O total hysterectomy with bilateral salpingo-oophorectomy (BSO) History of left knee replacement (~2017) Hx of cataract surgery R/L Past Anesthesia History No Hx of Anesthesia Complications and No Family Hx of Anesthesia Complications History of PONV No Hx of PONV and No Hx of Motion Sickness Social History Smoking Status: Never smoker Do You Dip or Chew Tobacco: No Hx Alcohol Use: Yes Alcohol type: beer, wine and hard liquor alcohol intake frequency: a few times a week Hx Substance Use: No Review of Systems Pt denies any recent chest pain, shortness of breath, palpitations, cough, fever, URI, or uncontrolled acid reflux. Physical Exam Vital Signs BP: 108/72 (manual, NIBP unable to determine) P: 75bpm SPO2: 95% RA T: 97.9 F R: 16 ENMT Mouth: + dental restorations (many crowns); no chipped teeth and no loose teeth Thyromental Distance: > or= 3.5 Finger Breadths Mallampati Class: II Neck normal visual inspection; neck extension not limited Respiratory normal respiratory effort, lungs clear to auscultation Cardiovascular RRR, no murmur, no edema Testing Laboratory Results 08/22/20 12:35 08/22/20 12:35 PT 9.8 Seconds (9.0-12.0) 08/22/20 12:35 INR 1.0 (0.9-1.1) 08/22/20 12:35 APTT 27.8 Seconds (21.0-31.0) 08/22/20 12:35 Blood Type O Positive 08/22/20 12:35 Antibody Screen NEGATIVE 08/22/20 12:35 Electrocardiogram Date: 08/22/20 Findings: + NSR @ (70bpm) Nonspecific ST abnormality. Compared to EKG of 07/18/2017, no significant change was found. Chest X-Ray Date: 08/22/20 FINDINGS: Lung volumes are normal. Lungs are clear. There is no pneumothorax or pleural effusion. Cardiac size is normal. Mediastinal contours are normal. There is no evidence for pulmonary edema. Elevation of the right hemidiaphragm is unchanged. IMPRESSION: No acute cardiopulmonary findings.
[2020-08-22 12:50] LABS: Basophils # (auto) 0.03 K/uL (0-0.2); Basophils % (auto) 0.5 %; Eosinophils # (auto) 0.04 K/uL (0-0.5); Eosinophils % (auto) 0.7 %; Hematocrit (blood only) 40.4 % (37-47); Hemoglobin 13.7 g/dL (12.0-16.0); Immature Granulocytes # (auto) 0.01 K/uL (0.00-0.02); Immature Granulocytes % (auto) 0.2 %; Lymphocytes # (auto) 1.64 K/uL (1.2-3.4); Lymphocytes % (auto) 29.5 %; Mean Corpuscular Hemoglobin 31.6 pg (25-34); Mean Corpuscular Hgb Conc 33.9 g/dL (32-36); Mean Corpuscular Volume 93.3 fL (80-100); Mean Platelet Volume 11.3 fL (7.4-10.4); Monocytes # (auto) 0.58 K/uL (0.11-0.59); Monocytes % (auto) 10.4 %; Neutrophils # (auto) 3.26 K/uL (1.4-6.5); Neutrophils % (auto) 58.7 %; Platelet Count 239 K/uL (130-400); RDW Standard Deviation 44.4 fL (36.4-46.3); Red Blood Count 4.33 M/uL (4.2-5.4); White Blood Count 5.56 K/uL (4.8-10.8)
--- NOTE | 2020-08-22 13:00 | XRay Report ---
XR chest Pre-admission PA/Lat CLINICAL HISTORY: Preoperative evaluation. COMPARISON STUDY: Chest radiograph July 18, 2017. FINDINGS: Lung volumes are normal. Lungs are clear. There is no pneumothorax or pleural effusion. Car diac size is normal. Mediastinal contours are normal. There is no evidence for pulmonary edema. [place] tion of the right hemidiaphragm is unchanged. IMPRESSION: No acute cardiopulmonary findings. ACT 112: Negative or not required by law. Electronically signed by: Juan Pablo Benítez M.D. 08/22/2020 12:59 PM
[2020-08-22 13:03] LABS: Partial Thromboplastin Ratio 1.1; Partial Thromboplastin Time 27.8 Seconds (21.0-31.0); Prothrombin Time 9.8 Seconds (9.0-12.0)
[2020-08-22 14:06] LABS: BUN Creatinine Ratio 22.4 (10-20); Blood Urea Nitrogen 17 mg/dl (7-18); Calcium 9.5 mg/dl (8.5-10.1); Carbon Dioxide 27 mmol/L (21-32); Chloride 107 mmol/L (98-107); Creatinine Clr Calc Pharmacy 64.6 ml/min; Est GFR (African American) 85.9; Est GFR (Non-African American) 74.1; Glucose 93 mg/dl (70-99); Potassium 3.5 mmol/L (3.5-5.1); Sodium 141 mmol/L (136-145)
[2020-08-22 14:08] LABS: C Reactive Protein < 0.29 mg/dl (0-0.29)
--- NOTE | 2020-08-23 06:37 | Electrocardiogram Report ---
Test Reason : Blood Pressure : / mmHG Vent. Rate : 070 BPM Atrial Rate : 070 BPM P-R Int : 156 ms QRS Dur : 068 ms QT Int : 378 ms P-R-T Axes : 082 045 067 degrees QTc Int : 408 ms Normal sinus rhythm Nonspecific ST abnormality Abnormal ECG When compared with ECG of 18-JUL-2017 09:14, No significant change was found Confirmed by Jeyson Christianson ([id number]) on 08/23/2020 6:37:08 AM Referred By: Yoav Reddy Confirmed By:Jeyson Christianson
--- NOTE | 2020-09-06 09:41 | History and Physical Report ---
DATE OF ADMISSION: 09/12/2020 CHIEF COMPLAINT: Persistent right knee pain and discomfort. HISTORY OF PRESENT ILLNESS: The patient is an 80-year-old female and long-term patient of mine who presents for surgical treatment of her right knee. She has got a long history of knee problems and had her left knee replaced just about 3 years ago. She has done well from this. Right knee has become more debilitating and more painful over time. She has been through extensive conservative treatment including various medicines as well as injections, which provided only temporary relief. Pain is mostly lateral. She has nighttime pain. She has a limited walking tolerance. She has pain going up and down steps. She would like to have her right knee replaced. PAST MEDICAL HISTORY: Significant for: 1. Anxiety/depression. 2. Hypertension. 3. Mild obesity, BMI 32. PAST SURGICAL HISTORY: Include: 1. Left knee replacement done on 08/16/2017. 2. Hysterectomy. ALLERGIES: None. CURRENT MEDICINES: 1. Tylenol. 2. Fosamax. 3. Calcium. 4. Vitamin D3. 5. Lisinopril/hydrochlorothiazide once a day. SOCIAL HISTORY: The patient is an 80-year-old female. She has 3 children. Does not smoke. 2-3 drinks per week. FAMILY HISTORY: Noncontributory. REVIEW OF HISTORY: Negative for diabetes, neurologic problem, vascular problems or bleeding disorders. No history of chest pain or shortness of breath. No history of DVT or PE. PHYSICAL EXAMINATION: GENERAL: Shows a pleasant elderly female. She looks younger than her stated age. HEENT: Benign. NECK: Supple with no lymphadenopathy. LUNGS: Clear to auscultation. HEART: Has a regular rate and rhythm. ABDOMEN: Soft, nontender, nondistended. EXTREMITIES: Grossly neurovascularly intact except as follows. Examination of the right knee reveals the patient limps on the right side. She has got valgus alignment to her knee, which is increased with weightbearing. She is tender over the lateral joint line. Small knee effusion. Range of motion is 10 degrees short of full extension to 120 degrees of flexion. Slight flexion contracture. No varus or valgus instability. No pain with hip motion. Examination of the left knee reveals well-healed incision. Anatomic alignment. Range of motion 0-120. X-RAYS: X-rays of the right knee reviewed. It shows advanced right knee lateral compartment DJD. She has complete loss of her lateral joint space. She has got osteophytes primarily laterally. Left knee replacement looks to be in good position. ASSESSMENT: An 80-year-old female 3 years out from a left knee replacement with advanced right knee degenerative joint disease. She has several other comorbidities including depression, hypertension, obesity. These all seem to be under control. She has failed conservative treatment and would like to have her right knee replaced. PLAN: We are going to take her to the operating room and do right total knee replacement. The risks and benefits of this procedure were explained to the patient including but not limited to DVT, PE, , infection, neurological injury, vascular injury, bleeding problem, pain, limited range of motion, stiffness, failure to relieve symptoms, incomplete relief of symptoms, need for further surgery in future, fracture, leg length inequality, nerve palsy, etc. The patient understands and desires to proceed. Informed consent was obtained. We did talk about holding her lisinopril the morning of surgery. She is hoping to be discharged to home using [facility]. Her son is going to come and stay with her for a short time during recovery.
[2020-09-12] MEDS ORDERED: ACETAMINOPHEN 500 MG TAB PO SCH (06:00)
[2020-09-12] MEDS ORDERED: ceFAZolin 2000MG 2,000 MG/15 ML SYR IV SCH (06:00)
[2020-09-12] MEDS ORDERED: GABAPENTIN 300 MG CAP PO SCH (06:00)
[2020-09-12] MEDS ORDERED: LR 500ML BOLUS, THEN 15ML/HR IV SCH (06:00)
[2020-09-12] MEDS ORDERED: TRANEXAMIC ACID 1,000 MG **IV Intra-op IV SCH (06:00)
[2020-09-12] MEDS ORDERED: FAMOTIDINE 20 MG TAB PO SCH (06:00)
[2020-09-12] MEDS ORDERED: BUPIVACAINE LIPOSOME/PF 266 MG, BUPIVACAINE/EPINEPHRINE 50 ML, SODIUM CHLORIDE 0.9% 30 ... INFIL SCH (06:00)
[2020-09-12] MEDS ORDERED: METOCLOPRAMIDE HCL 10 MG TABLET PO SCH (06:00)
[2020-09-12] MEDS ORDERED: LR 60ML/HR IV SCH (06:00)
[2020-09-12] MEDS ORDERED: BUPIVACAINE 0.5 % 5 MG/1 ML PF 10ML VIAL ONE (06:13)
[2020-09-12] MEDS ORDERED: EPINEPHrine INJ 1 MG/ML AMP ONE ×2 (06:13→06:33)
[2020-09-12] MEDS ORDERED: ROPIVACAINE 0.5% 5 MG/ML 30 ML VIAL ONE (06:13)
[2020-09-12] MEDS ORDERED: fentaNYL citrate 100 MCG/2 ML VIAL ONE (06:26)
[2020-09-12] MEDS ORDERED: MIDAZOLAM HCL 1 MG/ML 2ML VIAL ONE ×2 (06:26)
[2020-09-12] MEDS ORDERED: SODIUM CHLORIDE 0.9% PF 50 ML VIAL ONE (06:32)
[2020-09-12] MEDS ORDERED: BUPIVACAINE 0.25% 30 ML VIAL ONE (06:33)
[2020-09-12] MEDS ORDERED: BUPIVACAINE LIPOSOME 1.3% 266 MG/20 ML VIAL ONE (06:33)
--- NOTE | 2020-09-12 06:52 | History & Physical Bridge Note ---
Date of Service September 12, 2020 History & Physical Bridge Note I have examined the patient, reviewed the History & Physical and in the interval since the performance of the History & Physical I have noted the following changes of clinical significance: no changes noted
[2020-09-12] MEDS ORDERED: PROPOFOL IV EMULSION 10 MG/ML 20 ML VIAL IV ONE (07:17)
[2020-09-12] MEDS ORDERED: ePHEDrine sulfate 50 MG/ML SYR ONE (07:23)
[2020-09-12] MEDS ORDERED: PHENYLEPHRINE 100MCG/ML 5ML SYR ONE (07:23)
[2020-09-12] MEDS ORDERED: ATROPINE SULFATE 0.1 MG/ML 10ML SYR IV PRN (08:08)
[2020-09-12] MEDS ORDERED: ePHEDrine sulfate 50 MG/ML AMP IV PRN (08:08)
--- NOTE | 2020-09-12 08:58 | Operative Report ---
Post Operative Report Pre & Post Diagnosis Operation Date: 09/12/20 07:00 Pre-Op Diagnosis: Right Knee Advanced Degenerative Joint Disease Post-Op Diagnosis: Right Knee Advanced Degenerative Joint Disease I identified the patient and participated in the time-out.: Yes Procedure Operation Date: 09/12/20 07:00 Actual Procedures p Right Total Knee Arthroplasty(Right) - Yoav Reddy MD Surgeon Yoav Reddy MD Plug And [employer] Finisher MARIA DE JESUS Ray Estimated Blood Loss 50 Findings Consistent with Post-Op Diagnosis Operative findings real advanced right knee tricompartment DJD. She had a pretty extensive grade 4 changes in all 3 compartments. This is most severe laterally. She had a fixed valgus deformity to her knee. Moderate-sized joint effusion. Diffuse osteopenia. Fluids 900 cc Specimens Right knee sent for pathology. Drains None. Anesthesia Type Spinal MAC Complications none Disposition Accompanied Patient To Recovery: No Disposition: Recovery Room Indications Patient is an 80-year-old very active independent female has had a long history of knee problems. She underwent a left knee replacement several years ago and is done well from this. She developed persistent progressive right knee pain discomfort instability and in her right knee. She failed conservative measures. She elected proceed with total knee arthroplasty. Description of Procedure Operative implants consist of: 1. Biomet Vanguard size 67.5 right posterior stabilized femoral component. 2. Biomet size 71 tibial tray. 3. 10 mm posterior stabilized polyethylene insert. 4. 31 x 8 all polypatella The patient was taken the operating, identified, placed on the operating table supine position protectors were properly padded IV antibiotics tried by anesthesia team. A spinal anesthetic and abductor canal block had provided holding area. Mckenzie catheter was placed in sterile fashion a right thigh turn was then placed in the right lower extremities and prepped draped in usual sterile fashion. The right leg was elevated exsanguinated with use of an Esmarch and turns placed at 3 mmHg. An anterior approach to the right knee was then performed to longitudinal incision centered over the patella. Sharp dissection was carried through subcutaneous this down the extensor mechanism. A medial parapatellar arthrotomy incision was made. Some subperiosteal dissection was carried out medially. The fat pad was resected from each patella tendon. Lateral patellofemoral ligament was released. Patella subluxated laterally and the knee was flexed. The osteophytes were taken off distal femur. The ACL and PCL were then released from the distal femur the tibia subluxated anteriorly. The external tibial alignment jig was then placed in the interface the tibia and adjusted 12 mm medially. Proximal tibial cut was made remove about 3 to 4 mm of bone from the medial side. The tibia was then sized to a size 71. We tried to maximize the coverage due to her osteopenia but also get appropriate rotation. Attention drawn the femur. The distal femur then with a sharp drop with intramedullary canal was suction. A right 5 degree valgus cutting guide was placed. Distal femoral cutting block was pinned in place. Distal femoral cut was made to take an additional 5 mm of bone off distal femur as the initial cut really did not take much off at all from the lateral side. The knee was brought out in extension. I very carefully released some the IT band and posterior lateral capsule in order to equalize the extension gap. Great care was taken throughout the procedure protect the peroneal nerve at all times. The knee was flexed. The femur was then sized to a size 67.5. We did downsize this. I realize it was cut below a little while medial lateral but did not feel like I could downsize any further for fear of flexion instability. The 8 cutting block was pinned parallel to the epicondylar axis which was 6 degrees of external rotation. The anterior cut, anterior chamfer, posterior cut, posterior chamfer cuts were made. The box cutting guide was placed in just slight lateral box cut was made. The knee was flexed. The remnants of the medial and lateral menisci were excised. The osteophytes were taken off the posterior aspect of femur. I did release the popliteus in order to equalize the flexion gap. A trial femoral component was placed but the tibial tray was pinned in maximum external rotation and the drill and stem punch used to create defect in proximal tibia for the tibial tray. Knee was then trialed and 10 mm insert fit most appropriately. Attention drawn the patella. Patella was cleaned of all soft tissues. Patella thickness measured 20 mm in thickness cut down to 12. Was sized to a size 31 patella. The locals were drilled for the 31 patella. The lateral osteophyte is moved. Patella button wa s placed. Knee was taken through range of motion patella tracked nicely with no thumbs test. Attention drawn to placing permanent components. All trial components were removed. Bone plug was placed in the distal femur limit blood loss. Double batch Palacos G cement was mixed. A Biomet Vanguard size 67.5 right posterior stabilized femoral component, size 71 tibial tray, a 10 mm posterior stabilized polyethylene insert, and a 31 x 8 all polypatella were then cemented in place. The knee was brought out into full extension until cement hardened. Final cement check was then performed. Pericapsular tissues were injected 1200 cc of combination of 20 Exparel, 30 cc normal saline, 50 cc of quarter percent Marcaine with epinephrine. Patient did receive 1 g tranexamic acid per the tourniquet was then let down for final turn time 55 minutes. Hemostasis assured with electrocautery. Extensor mechanism closed with combination 1 PDS suture #1 Vicryl suture in [id number] fashion to the extensor mechanism checked found to be intact with subcutaneous tissue then closed with 2 Dexon suture in a buried interrupted fashion skin was closed skin dangelo. Leg was then cleaned dried and sterile dressing both Xeroform, 4 x 4's, sterile cast padding, Jarocho wrap were applied. Patient then transferred to the recovery room in stable condition. Patient tolerated the procedure well and there were no complications. Keagan Ray, my physician procurement assistant, was present for the entire procedure. His assistance was essential and required for appropriate patient positioning, prepping and draping, surgical exposure, performing the technical details of the operation, placement the implants, closure of the wound, and placement of the sterile bandage. I attest to the content of the Intraoperative Record and any orders documented therein. Any exceptions are noted below.
--- NOTE | 2020-09-12 09:15 | Anesthesiology Progress Note ---
Date of Service September 12, 2020 Anesthesia Post Procedure Vital Signs Vital Signs: Temp Pulse Pulse Resp BP BP Pulse Ox 09/12/20 09:10 78 13 108/55 L 96 09/12/20 09:00 77 16 112/48 L 95 09/12/20 08:51 36 C L 78 14 98/46 L 96 09/12/20 05:46 36.6 C 92 H 20 148/61 H 95 Pain Intensity Right Knee: Pain Intensity: 0 Transfer of Care Handoff Completed per policy Notes Mental Status: alert / awake / arousable Patient Amnestic to Procedure: Yes Nausea / Vomiting: adequately controlled Pain: adequately controlled Airway Patency, RR, SpO2: stable & adequate BP & HR: stable & adequate Hydration State: stable & adequate Neuraxial Anesthesia: was administered and sensory block is resolving Anesthetic Complications: no major complications apparent
--- NOTE | 2020-09-12 09:22 | XRay Report ---
XR knee RT 1 or 2V routine HISTORY: 80 years-old Female Surgical Post Op right knee total joint arthroplasty COMPARISON: 10/18/2012 TECHNIQUE: 2 views of the right knee FINDINGS: Right knee total joint arthroplasty and patella resurfacing. Anterior midline skin dangelo are noted along with expected postsurgical soft tissue swelling and deep tissue air. No acute fracture or unexp ected opaque foreign body. IMPRESSION: Right knee total joint arthroplasty with expected postoperative changes. ACT 112: Negative or not required by law. The above report was generated using voice recognition software. It may contain grammatical, syntax o r spelling errors. Electronically signed by: Leonardo Jenkins M.D. 09/12/2020 9:20 AM
[2020-09-12] MEDS ORDERED: traMADol HCL 50 MG TABLET PO PRN (10:22)
[2020-09-12] MEDS ORDERED: ONDANSETRON INJ 2 MG/ML 2 ML VIAL IV PRN (10:22)
[2020-09-12] MEDS ORDERED: ALUMINUM/MAGNESIUM SUSP 30 ML UDC PO PRN (10:22)
[2020-09-12] MEDS ORDERED: METOCLOPRAMIDE HCL INJ 5 MG/ML 2 ML VIAL IV PRN (10:22)
[2020-09-12] MEDS ORDERED: NALOXONE HCL 0.4 MG/1 ML VIAL/CARP IV PRN (10:22)
[2020-09-12] MEDS ORDERED: bisacodyL 10 MG SUPP PR PRN (10:22)
[2020-09-12] MEDS ORDERED: HYDROmorphone INJ 0.5 MG/0.5 ML SYR IV PRN (10:22)
[2020-09-12] MEDS ORDERED: MAGNESIUM HYDROXIDE SUSP 30 ML UDC PO PRN (10:22)
[2020-09-12] MEDS: ASPIRIN 81 MG ECTAB PO SCH ×2 (11:11→20:32)
[2020-09-12] MEDS: DOCUSATE SODIUM 100 MG CAP PO SCH ×2 (11:12→20:32)
[2020-09-12] MEDS: SODIUM CHLORIDE 0.9% 1000ML 1,000 ML IV SCH ×2 (11:12→20:31)
[2020-09-12] MEDS: LISINOPRIL/HCTZ 10/12.5MG TAB PO SCH (11:12)
[2020-09-12] MEDS: MULTIVITAMIN TAB PO SCH (11:12)
[2020-09-12] MEDS: KETOROLAC TROMETHAMINE 15 MG/ML VIAL IV SCH ×3 (11:12→22:01)
[2020-09-12] MEDS: ACETAMINOPHEN 500 MG TAB PO SCH ×2 (14:08→22:01)
[2020-09-12] MEDS ORDERED: TRANEXAMIC ACID / 0.7% NACL 1,000 MG/100 ML BAG IV SCH (14:49)
[2020-09-12] MEDS: ceFAZolin 2000MG 2,000 MG/15 ML SYR IV SCH ×2 (15:31→23:28)
[2020-09-12] MEDS: FERROUS GLUCONATE 324 MG TAB PO SCH (18:22)
[2020-09-12] MEDS: ASCORBIC ACID 500 MG TAB PO SCH (18:22)
[2020-09-12] MEDS ORDERED: SENNA 8.6 MG TAB PO SCH (21:00)
[2020-09-13] MEDS: KETOROLAC TROMETHAMINE 15 MG/ML VIAL IV SCH ×2 (04:29→10:40)
[2020-09-13] MEDS: ACETAMINOPHEN 500 MG TAB PO SCH (06:12)
[2020-09-13 06:39] LABS: Hematocrit (blood only) 30.3 % (37-47); Mean Corpuscular Hemoglobin 31.4 pg (25-34); Mean Corpuscular Volume 95.3 fL (80-100); Mean Platelet Volume 11.7 fL (7.4-10.4); Platelet Count 168 K/uL (130-400); RDW Standard Deviation 45.4 fL (36.4-46.3); Red Blood Count 3.18 M/uL (4.2-5.4); White Blood Count 4.39 K/uL (4.8-10.8)
[2020-09-13 07:07] LABS: BUN Creatinine Ratio 21.1 (10-20); Calcium 7.8 mg/dl (8.5-10.1); Creatinine Clr Calc Pharmacy 64.3 ml/min; Est GFR (African American) 84.5; Est GFR (Non-African American) 72.9; Potassium 3.6 mmol/L (3.5-5.1)
[2020-09-13] MEDS ORDERED: dexAMETHasone 4 MG TAB PO SCH (08:00)
[2020-09-13] MEDS ORDERED: CALCIUM CARBONATE 1250MG TAB PO SCH (09:00)
[2020-09-13] MEDS ORDERED: CHOLECALCIFEROL 1,000 UNITS 25 MCG TAB PO SCH (09:00)
[2020-09-13] MEDS: DOCUSATE SODIUM 100 MG CAP PO SCH (09:01)
[2020-09-13] MEDS: ASPIRIN 81 MG ECTAB PO SCH (09:01)
[2020-09-13] MEDS: LISINOPRIL/HCTZ 10/12.5MG TAB PO SCH (09:01)
[2020-09-13] MEDS: ASCORBIC ACID 500 MG TAB PO SCH (09:01)
[2020-09-13] MEDS: MULTIVITAMIN TAB PO SCH (09:02)
[2020-09-13] MEDS: FERROUS GLUCONATE 324 MG TAB PO SCH (09:02)
--- NOTE | 2020-09-13 09:22 | Progress Notes ---
DATE: 09/13/2020 SUBJECTIVE: An 80-year-old female postop day 1 from right knee replacement. She is doing pretty well. Had a pretty good night. Pain is controlled. No chest pain or shortness of breath. Not feeling dizzy or lightheaded. OBJECTIVE: VITAL SIGNS: Temperature 36.5. Vital signs stable. GENERAL: Physical examination reveals ____ an elderly female. She is sitting up in bed and eating breakfast and looks completely comfortable. LUNGS: Clear to auscultation. HEART: Has a regular rate and rhythm. ABDOMEN: Soft, nontender, nondistended. EXTREMITIES: Grossly neurovascularly intact except as follows: Examination of the right leg reveals the leg to be well aligned. Dressing is clean, dry, and intact. She can dorsiflex and plantarflex her foot appropriately. She is neurologically intact. LABORATORY DATA: Hemoglobin 10.0. Hematocrit 30.3. Electrolytes are stable. ASSESSMENT: An 80-year-old female postop day 1 from right knee replacement, doing well. Pain is controlled. She is neurologically intact. Slightly anemic, but asymptomatic. PLAN: 1. DVT prophylaxis including thigh-high TEDs, SCDs, and aspirin twice a day. 2. PT/OT. Weight bear as tolerated. Right total knee protocol. 3. Pain control, doing well with current pain regimen. 4. Disposition: Plan to discharge to home with some home health once medically stable. We need to do some therapy to make sure her pain is controlled.
--- NOTE | 2020-09-14 15:52 | Discharge Summary ---
Date of Service September 14, 2020 Discharge Data Procedures Performed Operation Date: 09/12/20 07:00 Actual Procedures p Right Total Knee Arthroplasty(Right) - Yoav Reddy MD Hospital Course (1) Status post total right knee replacement: This patient is a 80 year old female admitted on 09/12/20 and underwent total knee arthroplasty. She tolerated the procedure well and there were no complications. Transferred to the PACU post op and later to the orthopedic floor for further care. SHe was given ancef for antibiotic prophylaxis. She was also given SCHUYLER stockings, SCDs, and aspirin for DVT prophylaxis. Hemoglobin, hematocrit, and vital signs were monitored during her hospital stay and remained stable. Did not require any blood transfusions. There were no complications dur ing her hospital stay. By post op day #1 the patient was tolerating a regular diet, pain was reasonably controlled with oral pain medicine, and she was participating in physical therapy. On post op day #1 the patient was discharged home and set up with home health care. She was given printed discharge instructions including prescriptions for extra strength tylenol, aspirin, and tramadol. Continue physical therapy, weight bearing as tolerated. Continue SCHUYLER stockings. Follow up approximately 2 weeks post op or sooner if there are problems or concerns. Coding Level of Care Code None Diagnoses Status post total right knee replacement Z96.651
== END 2020-09-13 11:33 | disposition home health service (06) ==
LOC: 3E 05:15 → ASU 05:15